=== PATIENT | female | born 2000 | race Caucasian/White ===

== ENCOUNTER 2020-03-20 11:59 | Emergency (ER) | payer BC, SELFPAY ==
--- NOTE | ~2020-03-20 | XR_ITS ---
EXAMINATION: XR shoulder RT min 2V DATE: 03/20/2020 12:33 INDICATION: Right shoulder pain. TECHNIQUE: 4 views of right shoulder were obtained. COMPARISON: None. FINDINGS: Bone alignment is normal. No fracture. Joint spaces are well maintained. IMPRESSION: 1. Normal right shoulder. Reviewed, dictated and finalized at location A. ETIC ADVISOR IMPRESSION: 1. Normal right shoulder.
[2020-03-20 12:07] VITALS: BP 145/71; PULSE 99; RESP 16; TEMP 36.4; O2SAT 98
--- NOTE | 2020-03-20 12:28 | ED.GENADULT ---
HPI - General Adult General Chief complaint: Extremity Injury, Upper Stated complaint: R SHOULDER PAIN Time Seen by Provider: 03/20/20 12:24 Source: patient and RN notes reviewed Mode of arrival: ambulatory Limitations: no limitations History of Present Illness HPI narrative: 19-year-old female presents with complaints of right shoulder pain for 1 day. 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 RT pain is causing difficulty with lifting, pulling, and pulling up pants. Tylenol and Ibuprofen last on 03/19/20 without relief. No known injury. Denies numbness or tingling. Hurts with movement of shoulder. Denies radiating pain. No loss of mobility. No swelling. Exacerbating factor is movement. Relieving factor is rest and pain medication. The dominant hand is the RIGHT HAND. Remains active. LMP 1 week ago. The patient reports she have not been diagnosed with COVID-19. The patient reports she is not waiting for the results of a COVID-19 lab test. The patient reports she do not have fever, chills, weakness, or fatigue. The patient reports she do not have a new or worsening cough or shortness of breath. Denies chest pain. The patient reports she do not have any rhinorrhea, congestion, sore throat, loss of taste, nausea, vomiting, abdominal pain, and diarrhea. Tolerating po intake well. Denies recent traveling. Denies concerns for COVID-19 or exposures been home with limited outdoor exposure except for essential household needs, work, and return home. At this time, patient is not suspected of having COVID-19. Some parts of this dictation were generated by voice recognition software and may contain typographical and/or grammatical inaccuracies. Related Data Allergies Allergy/AdvReac Type Severity Reaction Status Date / Time esomeprazole [From Nexium] Allergy Palpitation Verified 03/20/20 12:05 s Review of Systems Review of Systems: Narrative: CONSTITUTIONAL: Denies fever, chills, sweats. EYES: Denies visual changes, redness, discharge. ENT: Denies rhinorrhea, congestion, sore throat, otalgia. CARDIOVASCULAR: Denies chest pain, palpitations, edema. RESPIRATORY: Denies dyspnea, wheezing, cough. GASTROINTESTINAL: Denies abdominal pain, nausea, vomiting, diarrhea. SKIN: Denies rash or itching. MUSCULOSKELETAL: Denies acute back pain or myalgia. Complains of right shoulder pain. NEUROLOGIC: Denies numbness or focal weakness. PSYCHIATRIC: Denies anxiety or depression. All other systems reviewed & are unremarkable except as noted in HPI and below. 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 History of gastroesophageal reflux (GERD) Obesity Panic disorder Surgical History Surgical History (Updated 03/20/20 @ 13:34 by BARRY Winslow) History of tonsillectomy Family History Family History (Updated 03/20/20 @ 13:39 by BARRY Winslow) Grandparent Family history of malignant neoplasm of ovary Father High cholesterol Mother Alive and well Grandparent Diabetes mellitus Grandparent Lung cancer Grandparent Hypertension Social History Social History (Updated 03/20/20 @ 13:41 by BARRY Winslow) Smoking status: Current every day smoker Tobacco type: e-cigarettes/vaping Second hand tobacco smoke exposure: No Alcohol intake: current Substance use: current Substance use type: marijuana Living arrangements: with family Occupation/Education: occupation Gender identity (if verbalized by the patient): Female Comments At time of signature, agree with nurse past medical, surgical, social, and family history. There is no relevant family history pertinent to the presenting complaint. Exam Narrative: Exam Na
== END 2020-03-20 12:58 | disposition home or self-care (01) ==
PROVIDERS: Emergency Provider Nurse Practitioner Family; PCP Family Medicine
DX: S43.401A Unspecified sprain of right shoulder joint, initial encounter (principal); X50.3XXA Overexertion from repetitive movements, initial encounter; Y99.0 Civilian activity done for income or pay; K21.9 Gastro-esophageal reflux disease without esophagitis; E66.9 Obesity, unspecified; Z68.33 Body mass index [BMI] 33.0-33.9, adult
CPT/HCPCS: 73030; 99213; G0463

== ENCOUNTER → 2020-10-27 13:12 | Outpatient (CLI) | payer BC, SELFPAY ==
--- NOTE | ~2020-10-27 | US_ITS ---
US thyroid INDICATION: Thyroid goiter TECHNIQUE: Real-time sonographic images of the thyroid gland were obtained. COMPARISON: Ultrasound dated 02/28/2018 FINDINGS: The right thyroid lobe measures 4.6 x 1.5 x 1.8 cm. The left thyroid lobe measures 3.6 x 1 .1 x 1.7 cm. There is normal echotexture and echogenicity throughout the thyroid gland. There is a be nign 7 mm cyst left side of the isthmus. Normal vascular flow is present. IMPRESSION: 1. Cyst of the isthmus measuring 7 mm, benign. Otherwise, unremarkable thyroid ultrasound. Reviewed, dictated and finalized at location A.
== END ==
PROVIDERS: Visit Provider Internal Medicine Endocrinology, Diabetes & Metabolism
DX: E04.9 Nontoxic goiter, unspecified (principal)
CPT/HCPCS: 76536

== ENCOUNTER 2021-01-31 13:36 | Emergency (ER) | payer BC, SELFPAY ==
[2021-01-31 13:41] VITALS: BP 149/82; PULSE 112; RESP 12; TEMP 36.6; O2SAT 99
--- NOTE | 2021-01-31 13:49 | ED.FEMALEGU ---
HPI - Female Genitourinary General Chief complaint: WINE SALES REPRESENTATIVE Stated complaint: pos infection on labia Time Seen by Provider: 01/31/21 13:45 Source: patient, RN notes reviewed and old records reviewed Mode of arrival: ambulatory Limitations: no limitations History of Present Illness HPI Narrative: 20 year old female who presents to [facility] care with complaints of lesion to the left perineal area which has been there for the past 3-4 days. Patient states that area is irritated by her underwear and when she urinates. Patient states that she has history of herpes with no herpetic lesions noted for 3-4 years, does not take daily antiviral medications. Patient states that she just has one area that is irritated with no drainage or burning noted, states that she does shave in the area. MD elicited complaint: other (small irritated lesion to left groin area.) Pertinent past history: other (herpes) Onset (ago): minute(s) Related Data Home Medications Medication Instructions Recorded Confirmed metformin 500 mg tablet 500 mg PO DAILY 01/26/21 01/26/21 spironolactone 50 mg tablet 50 mg PO DAILY 01/26/21 01/26/21 Allergies Allergy/AdvReac Type Severity Reaction Status Date / Time esomeprazole [From Nexium] Allergy Palpitation Verified 01/26/21 09:54 s Review of Systems Review of Systems: CONSTITUTIONAL: Denies fever, chills, or sweats. EYES: Denies visual changes, redness, or discharge. ENT: Denies rhinorrhea, congestion, sore throat, or otalgia. CARDIOVASCULAR: Denies chest pain, palpitations, or edema. RESPIRATORY: Denies cough or dyspnea. GASTROINTESTINAL: Denies abdominal pain, nausea, vomiting, or diarrhea. GENITOURINARY: Denies dysuria or hematuria. SKIN: Denies rash or itching, reports one small lesion in left groin area that is irritated and tender MUSCULOSKELETAL: Denies back pain, joint pain, or myalgia. NEUROLOGIC: Denies headache, numbness, or weakness. PSYCHIATRIC: Positive history of anxiety or depression. 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 Herpes genitalia History of gastroesophageal reflux (GERD) Obesity Panic disorder Surgical History Surgical History History of tonsillectomy Family History Family History Grandparent Family history of malignant neoplasm of ovary Father High cholesterol Mother Alive and well Grandparent Diabetes mellitus Grandparent Lung cancer Grandparent Hypertension Social History Social History Smoking status: Former smoker Tobacco type: e-cigarettes/vaping Second hand tobacco smoke exposure: No Alcohol intake: current Substance use: current Substance use type: marijuana Gender identity (if verbalized by the patient): Female Comments At time of signature, agree with nursing past medical, surgical, social and family history. There is no relevant family history pertinent to the presenting complaint Exam Narrative: GENERAL: Well-appearing, well-nourished, and in no acute distress. HEAD: Normocephalic, atraumatic. EYES: PERRLA and EOMI. ENT: Nares clear, no rhinorrhea or epistaxis. Mucous membranes moist. NECK: Supple.no lymphadenopathy CHEST: Clear to auscultation. No respiratory distress.SAO2 99% on room air HEART: Regular rate and rhythm. No murmur heard. Normal peripheral pulses. ABDOMEN: Soft, nontender, nondistended, normal active bowel sounds. EXTREMITIES: Normal range of motion. No edema. SKIN: Warm, dry, no rash.one small red lesion in left groin area around hair follicle with no purulent drainage or evidence of abscess, no blistering noted, Lesion not on vaginal area or
== END 2021-01-31 14:15 | disposition home or self-care (01) ==
PROVIDERS: Emergency Provider Registered Nurse; PCP Family Medicine
DX: L73.9 Follicular disorder, unspecified (principal); F17.290 Nicotine dependence, other tobacco product, uncomplicated; K21.9 Gastro-esophageal reflux disease without esophagitis; E66.9 Obesity, unspecified; Z68.34 Body mass index [BMI] 34.0-34.9, adult
CPT/HCPCS: 99213; G0463

== ENCOUNTER 2021-08-22 19:00 | Emergency (ER) | payer BC, SELFPAY ==
--- NOTE | 2021-08-22 19:10 | ED.FEMALEGU ---
HPI - Female Genitourinary General Chief complaint: Urogenital-Female Stated complaint: std,uti test Time Seen by Provider: 08/22/21 19:10 Source: patient and RN notes reviewed Mode of arrival: ambulatory Limitations: no limitations History of Present Illness HPI Narrative: 21-year-old female presents with concern for abnormal vaginal discharge. She reports approximately 1 month history of egg white like vaginal discharge. She denies any rash, lesions, itching, abnormal vaginal bleeding. She reports she would like to be tested for STD's, she reports she has had a monogamous partner, but would still like to be tested. She denies abdominal pain, fever, nausea, vomiting. She denies dysuria, urgency, frequency, hematuria, flank pain. MD elicited complaint: vaginal discharge Related Data Home Medications Medication Instructions Recorded Confirmed metformin 500 mg tablet 500 mg PO DAILY 01/26/21 03/23/21 spironolactone 50 mg tablet 50 mg PO DAILY 01/26/21 03/23/21 Allergies Allergy/AdvReac Type Severity Reaction Status Date / Time esomeprazole [From Nexium] Allergy Palpitation Verified 08/22/21 19:10 s Review of Systems Review of Systems: CONSTITUTIONAL: Denies malaise, chills, sweats, or fever. CARDIOVASCULAR: Denies chest pain, palpitations, or edema. RESPIRATORY: Denies cough or dyspnea. GASTROINTESTINAL: Denies abdominal pain, nausea, vomiting, diarrhea GENITOURINARY: Denies dysuria, frequency, urgency, suprapubic pressure. Denies flank pain or hematuria. Reports abnormal vaginal discharge SKIN: Denies lesions, rash or itching. MUSCULOSKELETAL: Denies back pain or myalgia. 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 Herpes genitalia History of gastroesophageal reflux (GERD) Obesity Panic disorder Surgical History Surgical History History of tonsillectomy Family History Family History Grandparent Family history of malignant neoplasm of ovary Father High cholesterol Mother Alive and well Grandparent Diabetes mellitus Grandparent Lung cancer Grandparent Hypertension Social History Social History Smoking status: Former smoker Tobacco type: e-cigarettes/vaping Second hand tobacco smoke exposure: No Alcohol intake: current Substance use: current Substance use type: marijuana Gender identity (if verbalized by the patient): Female Comments At time of signature, agree with nursing past medical, surgical, social and family history. There is no relevant family history pertinent to the presenting complaint Exam Narrative: GENERAL: Well-appearing, well-nourished, and in no acute distress. HEAD: Normocephalic. EYES: PERRLA, conjunctivae clear. NECK: Supple. No lymphadenopathy CHEST: Clear to auscultation. No respiratory distress. HEART: Regular rate and rhythm. ABDOMEN: Soft, nontender upon palpation, nondistended, normal active bowel sounds, no palpable or pulsatile masses, no guarding. No CVA tenderness SKIN: Warm, dry, no rash. NEURO: Alert and oriented x3. PSYCH: Normal mood and affect : External Female Exam: normal external appearance Speculum Exam - Vagina: normal appearance of the vagina and abnormal vaginal discharge white Speculum Exam - Cervix: normal appearance of the cervix Bimanual exam- vagina & uterus: normal bimanual exam Bimanual Exam- Adnexa, other: normal adnexae Course Course Emergency Course: Discussed treatment options with patient, presumptively treating for BV or STI, patient does not want to be presumptively treated, reports she does not react well to antibiotics and
[2021-08-22 19:15] VITALS: BP 134/98; PULSE 106; RESP 16; TEMP 36.2; O2SAT 100
== END 2021-08-22 19:33 | disposition home or self-care (01) ==
PROVIDERS: Emergency Provider Nurse Practitioner
DX: N89.8 Other specified noninflammatory disorders of vagina (principal); F17.290 Nicotine dependence, other tobacco product, uncomplicated; K21.9 Gastro-esophageal reflux disease without esophagitis; E66.9 Obesity, unspecified; Z68.34 Body mass index [BMI] 34.0-34.9, adult
CPT/HCPCS: 87070; 87491; 87591; 87661; 99214; G0463

== ENCOUNTER → 2023-04-20 13:58 | Outpatient (CLI) | payer BC, SELFPAY ==
--- NOTE | ~2023-04-20 | US_ITS ---
EXAMINATION: US pelvic complete w TV DATE: 04/20/2023 14:45 INDICATION: L quadrant pain TECHNIQUE: Multiple transabdominal and endovaginal sonographic images of the pelvis were obtained. COMPARISON: None. FINDINGS: Uterus: 5.6 x 3.4 x 2.5 cm. Endometrial complex measures 2 mm. Right Ovary: Not visualized. Left Ovary: 2.5 x 1.6 x 2.3 cm. Vascular flow is present. No adnexal mass. There is trace free fluid in the pelvis. IMPRESSION: Right ovary obscured by bowel. Otherwise normal pelvic sonogram findings. Reviewed, dictated and finalized at location K. S CLOSER
== END ==
PROVIDERS: Visit Provider Obstetrics & Gynecology
DX: R10.32 Left lower quadrant pain (principal)
CPT/HCPCS: 76830; 76856